=== PATIENT | female | born 1995 | race Caucasian/White ===

== ENCOUNTER 2017-05-06 15:34 | Outpatient (CLI) | payer BC ==
[~2017-05-06] VITALS: Ht 167.6 cm; Wt 87.0 kg
[~2017-05-06 15:34] MED LIST: MTR600X PO; PRENTAB26 PO
[2017-05-06] MEDS ORDERED: LACTATED RINGER'S 1000ML 500 ML IV ONE (16:05)
[2017-05-06] MEDS ORDERED: LACTATED RINGER'S 1000ML 1,000 ML IV SCH (16:05)
[2017-05-06] MEDS ORDERED: ACETAMINOPHEN 325 MG TAB PO PRN (16:15)
[2017-05-06 16:33] VITALS: Ht 167.6 cm; Wt 87.0 kg
[2017-05-06 17:38] LABS: URINE APPEARANCE CLEAR (CLEAR); URINE BILIRUBIN NEG (NEG); URINE COLOR YELLOW; URINE NITRITE NEG (NEG); URINE PH 7.5 (4.5-7.5); URINE SPECIFIC GRAVITY 1.004 (1.000-1.030); UROBILINOGEN NEG (NEG)
[2017-05-06 17:40] LABS: MANUAL MICROSCOPIC REQUIRED? NO; REVIEW REQ? YES
[2017-05-06 18:02] LABS: URINE EPITHELIAL CELL AUTO 0-5 /lpf (0-5)
[2017-05-06 18:04] LABS: ZZUR CULT IF INDIC CLEAN CATCH YES
[2017-05-06] MEDS ORDERED: TERBUTALINE SULFATE 1 MG/ML VIAL SQ ONE (19:15)
== END 2017-05-06 20:35 | disposition home or self-care (01) ==
LOC: C.OPB 15:34 → C.LD 15:34 → C.OPB 20:35
PROVIDERS: ATTEND Obstetrics & Gynecology
DX: O62.9 Abnormality of forces of labor, unspecified (principal); Z3A.35 35 weeks gestation of pregnancy

== ENCOUNTER 2017-05-30 17:53 | Outpatient (CLI) | payer BC, OTHER ==
[~2017-05-30] VITALS: Ht 165.1 cm; Wt 87.5 kg
[2017-05-30] MEDS ORDERED: LACTATED RINGER'S 1000ML 500 ML IV ONE (18:17)
[2017-05-30] MEDS ORDERED: LACTATED RINGER'S 1000ML 1,000 ML IV SCH ×2 (18:17→19:45)
[2017-05-30] MEDS ORDERED: TERBUTALINE SULFATE 1 MG/ML VIAL SQ ONE (19:45)
== END 2017-05-30 21:26 | disposition home or self-care (01) ==
LOC: C.OPB 17:53 → C.LD 17:53 → C.OPB 21:26
PROVIDERS: ATTEND Obstetrics & Gynecology
DX: O62.9 Abnormality of forces of labor, unspecified (principal); Z3A.38 38 weeks gestation of pregnancy

== ENCOUNTER 2017-06-02 05:32 | Inpatient (IN) | payer OTHER, BC ==
--- NOTE | 2017-05-26 13:30 | PAT Medication Instructions ---
Service Date May 26, 2017. Current Home Medication List No Active Prescriptions or Reported Meds Medication Instructions For Your Scheduled Surgery No Active Prescriptions or Reported Meds - Please contact PAT department if starting any medications prior to procedure. If you have any questions please call us at [phone] or [phone] or [phone]
[2017-05-26 13:59] LABS: BASO % 0.2 %; BASO ABS # 0.02 K/uL (0-0.2); EOS % 0.3 %; EOS ABS # 0.04 K/uL (0-0.5); HEMATOCRIT 34.2 % (37-47); HEMOGLOBIN 11.3 g/dL (12.0-16.0); LYMPH % 19.5 %; LYMPH ABS # 2.52 K/uL (1.2-3.4); MEAN CELL VOLUME 81.8 fL (80-100); MONO % 10.6 %; MONO ABS # 1.37 K/uL (0.11-0.59); NEUT % 68.6 %; NEUT ABS # 8.86 K/uL (1.4-6.5); PLATELET COUNT 162 K/uL (130-400); RED CELL DISTRIBUTION WIDTH CV 13.3 % (11.5-14.5); RED CELL DISTRIBUTION WIDTH SD 39.6 fL (36.4-46.3); WHITE BLOOD COUNT 12.91 K/uL (4.8-10.8)
[2017-05-26 15:42] LABS: BLOOD UREA NITROGEN 5 mg/dl (7-18); CALCIUM 9.3 mg/dl (8.5-10.1); CARBON DIOXIDE 25 mmol/L (21-32); CREATININE 0.69 mg/dl (0.60-1.20); GLUCOSE 94 mg/dl (70-99); POTASSIUM 3.7 mmol/L (3.5-5.1); SODIUM 136 mmol/L (136-145)
[~2017-06-02] VITALS: Ht 162.6 cm; Wt 88.0 kg
[2017-06-02] VITALS (16 sets, daily range): BP systolic 103–124; BP diastolic 65–72; PULSE 64–82; TEMP 35.2–37.6; O2SAT 98–100; Ht 162.6 cm; Wt 88.0 kg
[~2017-06-02 05:32] MED LIST changes: +LACTATED RINGER'S 1000ML 1,000 ML IV SCH; -MTR600X PO; -PRENTAB26 PO
[2017-06-02 06:00] LABS: BASO % 0.2 %; BASO ABS # 0.03 K/uL (0-0.2); EOS % 0.7 %; EOS ABS # 0.09 K/uL (0-0.5); HEMATOCRIT 36.3 % (37-47); HEMOGLOBIN 11.6 g/dL (12.0-16.0); IG# 0.09 K/uL (0.00-0.02); LYMPH ABS # 3.93 K/uL (1.2-3.4); MEAN CELL VOLUME 80.5 fL (80-100); MEAN CORPUSCULAR HEMOGLOBIN 25.7 pg (25-34); MONO % 7.3 %; MONO ABS # 0.93 K/uL (0.11-0.59); NEUT % 60.1 %; NEUT ABS # 7.61 K/uL (1.4-6.5); PLATELET COUNT 173 K/uL (130-400); RED CELL DISTRIBUTION WIDTH CV 13.3 % (11.5-14.5); RED CELL DISTRIBUTION WIDTH SD 38.4 fL (36.4-46.3); WHITE BLOOD COUNT 12.68 K/uL (4.8-10.8)
[2017-06-02] MEDS ORDERED: CITRIC ACID/SODIUM CITRATE 15 ML UDC PO SCH (06:00)
[2017-06-02] MEDS ORDERED: CEFAZOLIN IV 2,000 MG in SYRINGE 0 ML IV SCH (06:00)
[2017-06-02] MEDS ORDERED: LACTATED RINGER'S 1000ML 1,000 ML IV SCH ×2 (06:00→08:41)
[2017-06-02] MEDS ORDERED: PRENCAP38 PO (06:14)
--- NOTE | 2017-06-02 07:03 | History & Physical Bridge Note ---
H&P Re-Evaluation Bridge Note: I have examined the patient, reviewed the History & Physical and in the interval since the performance of the History & Physical I have noted the following changes of clinical significance: No changes noted
[2017-06-02] MEDS ORDERED: HYDROmorphone INJ 1 MG/ML SYR IV PRN (07:30)
[2017-06-02] MEDS ORDERED: FENTANYL CITRATE INJ 50 MCG/1 ML 2 ML VIAL IV PRN (07:30)
[2017-06-02] MEDS ORDERED: ONDANSETRON INJ 2 MG/ML 2 ML VIAL IV PRN ×2 (07:30→08:15)
[2017-06-02] MEDS ORDERED: ATROPINE SULFATE 0.1 MG/ML 5ML SYR IV PRN (07:30)
[2017-06-02] MEDS ORDERED: MEPERIDINE HCL 25 MG/ML CARP IV PRN ×2 (07:30→08:15)
[2017-06-02] MEDS ORDERED: EpHEDrine SULFATE INJ 50 MG/ML AMP IV PRN ×2 (07:30→08:15)
[2017-06-02] MEDS ORDERED: LABETALOL HCL IV 5 MG/ML 20ML IV PRN (07:30)
[2017-06-02] MEDS ORDERED: MoRPHine SULFATE PF 1 MG/ML 10 ML AMP/VIAL ONE (07:34)
[2017-06-02] MEDS ORDERED: NALOXONE HCL INJ 1 MG in SODIUM CHLORIDE 0.9% 1000ML 1,000 ML IV PRN (08:13)
[2017-06-02] MEDS ORDERED: NALOXONE HCL INJ 0.08 MG in SYRINGE 1.8 ML IV PRN (08:13)
[2017-06-02] MEDS ORDERED: LACTATED RINGER'S 1000ML 500 ML IV PRN (08:13)
[2017-06-02] MEDS ORDERED: SODIUM CHLORIDE 0.9% 1000ML 1,000 ML IV PRN (08:13)
[2017-06-02] MEDS ORDERED: KETOROLAC TROMETHAMINE 30 MG/ML VIAL IV. PRN (08:15)
[2017-06-02] MEDS ORDERED: MoRPHine SULFATE 2 MG/ML CARP IV PRN (08:15)
[2017-06-02] MEDS ORDERED: NALOXONE HCL 0.4 MG/1 ML VIAL/CARP IV PRN (08:15)
[2017-06-02] MEDS ORDERED: NALBUPHINE HCL INJ 10 MG/ML AMP IV PRN (08:15)
[2017-06-02] MEDS ORDERED: MoRPHine SULFATE PF 1 MG/ML 10 ML AMP/VIAL EPI PRN (08:15)
[2017-06-02] MEDS ORDERED: METOCLOPRAMIDE HCL INJ 20 MG in SODIUM CHLORIDE 0.9% 50ML 50 ML IV PRN (08:15)
[2017-06-02] MEDS ORDERED: NO NARCOTICS OR SEDATIVES SCH (08:15)
[2017-06-02] MEDS ORDERED: DiphenhydrAMINE HCL 50 MG/ML VIAL IV PRN ×2 (08:15)
[2017-06-02] MEDS ORDERED: OXYTOCIN INJ 10 UNITS/ML VIAL ONE (08:19)
[2017-06-02] MEDS ORDERED: EpHEDrine SULFATE 50MG/5ML SYR ONE (08:20)
[2017-06-02] MEDS ORDERED: BENZOCAINE 20% AER SPR 82.5 GM CAN EXT PRN (08:45)
[2017-06-02] MEDS ORDERED: SUPERCREAM 0.870 % 15GM JAR EXT PRN (08:45)
[2017-06-02] MEDS ORDERED: LANOLIN OINT EXT PRN (08:45)
[2017-06-02] MEDS ORDERED: MAGNESIUM HYDROXIDE SUSP 30 ML UDC PO PRN (08:45)
[2017-06-02] MEDS ORDERED: HYDROCORTISONE ACETATE 25 MG SUPP PR PRN (08:45)
[2017-06-02] MEDS ORDERED: DIPHTHERIA/TETANUS/PERTUSSIS 0.5 ML SYR/VIAL IM. ONE (08:45)
[2017-06-02] MEDS ORDERED: SENNA 8.6 MG TAB PO PRN (08:45)
--- NOTE | 2017-06-02 08:49 | [facility] Post Operative Brief Note ---
Immediate Operative Summary Operative Date Jun 02, 2017. Pre-Operative Diagnosis Term at 39.1 weeks, Hx prior C/S requesting repeat section Post-Operative Diagnosis Same Procedure(s) Performed Repeat Low Transverse Section Surgeon Dr. Emerson Workforce Consultant Surgeon(s) Dr. Waters Estimated Blood Loss 600 Findings Patient Delivered a viable male infant in the vertex position via repeat C/S on the morning of 06/02/2017. APGARs and weight pending. Cord blood was obtained. An intact placenta with a 3 VC was delivered manually and sent to pathology. Grossly normal uterus and bilateral tubes and ovaries noted. Both patient and baby tolerated the surgery well and was sent to recovery with stable vital signs. Fluids (cc crystalloids) 2100 Specimens Placenta Cord Blood Drains Lacy to [place] Anesthesia Spinal Complication(s) None Disposition L&D
--- NOTE | 2017-06-02 09:41 | OPERATIVE REPORT ---
DATE OF OPERATION: 06/02/2017 PREOPERATIVE DIAGNOSES: 1. Term at 39 weeks and 1 day gestation. 2. History of prior section, requesting repeat section. POSTOPERATIVE DIAGNOSES: Same. OPERATIVE PROCEDURE: Repeat low transverse section. SURGEON: Dr. Uriah Emerson. INFORMATION AND DATA ARCHITECT ANALYST: Dr. Waters. ANESTHESIA: Spinal. ESTIMATED BLOOD LOSS: 600 mL. IV FLUIDS: 2100 mL crystalloids. URINE OUTPUT: 200 mL clear yellow urine. SPECIMENS: Placenta and cord blood. DRAINS: Lacy to gravity. COMPLICATIONS: None. DISPOSITION: Labor and delivery. OPERATIVE FINDINGS: The patient delivered a viable male in the vertex position via repeat section on the morning of 06/02/2017. Apgars and weight pending. Cord blood was obtained and intact placenta with 3-vessel cord was delivered manually and sent to pathology. Grossly normal uterus and bilateral tubes and ovaries noted. Both the patient and baby tolerated the surgery well and were sent to recovery with stable vital signs. OPERATIVE PROCEDURE IN DETAIL: The patient was taken to the operating room, where spinal anesthesia was administered. She was immediately placed in dorsal supine position with a left lateral tilt and was prepped and draped in a manner appropriate for the procedure. Once anesthesia was found to be adequate, a Pfannenstiel skin incision was made over the previous surgical scar and it was carried down through to a layer of the rectus fascia. Fascia was nicked in the midline and extended bilaterally with curved Blankenship scissors. The superior aspect of the fascial incision was grasped with Ellis clamps, elevated, and the rectus muscles were dissected off with the use of the curved Blankenship scissors and electrocautery. Likewise, the inferior aspect of the fascial incision was grasped with Ellis clamps, elevated, and the rectus muscles were dissected off with the use of the curved Blankenship scissors. Rectus muscles were in midline. The peritoneum was then entered bluntly and was extended cephalocaudally with gentle traction. An Gonzalo retractor was then placed within the abdomen. The vesicouterine peritoneum was then identified and a bladder flap was created with Metzenbaum scissors and digital traction. The bladder flap was then reincorporated beneath the [place] blade. A transverse incision was then made on the uterus and extended bilaterally with digital traction. Clear amniotic fluid was noted. The baby's head was identified and delivered through the incision along with the rest of the baby. Baby was bulb suctioned at delivery. Cord was clamped x2 and cut. The baby was immediately handed to an awaiting spray machine loader for further evaluation and management. Please see their notes for further baby assessment. Cord blood was then obtained and an intact placenta with 3-vessel cord was delivered manually and sent to pathology. The uterus was then exteriorized and wrapped in a moist laparotomy sponge. The uterus was then cleared of any trailing membranes and debris with the laparotomy sponge. The uterine incision was then grasped with ring forceps at 4 quadrants. They were then closed with 0 Vicryl suture in continuous locking fashion. A second layer of 0 Vicryl suture was used in an imbricating fashion to ensure hemostasis. Any residual bleeding was suture ligated with 0 Vicryl suture in a [id number] interrupted fashion. Excellent hemostasis was noted. The bladder flap was reapproximated to the lower uterus with a 3-0 Vicryl suture in a continuous running fashion. Excellent hemostasis was again noted. The posterior cul-de-sac was then irrigated with warm saline solution. The uterus was then placed back within its normal anatomic position within the abdomen. The anterior cul-de-sac was then irrigated with warm saline solution. Hemostasis was again noted. Seprafilm was placed over the incision and along the fundus of the uterus. All instruments were then removed from the abdomen along with the Gonzalo retractor. The peritoneum was then grasped with Angelica clamps at 4 quadrants and they were then closed with 2-0 Vicryl suture in a continuous running fashion. Rectus muscle was reapproximated with 0 Vicryl suture in a [id number] interrupted fashion. The rectus fascia was then closed with 0 Vicryl suture in continuous running fashion. Subcutaneous tissue was reapproximated with 2-0 Vicryl suture in continuous running fashion. Skin was then closed with susy. Excellent hemostasis was noted through all tissue layers. All sponge, instrument and needle counts were found to be correct x2. Both the patient and baby tolerated the surgery well and were sent to recovery with stable vital signs. I attest to the content of the Intraoperative Record and any orders documented therein. Any exception s are noted below.
[2017-06-02] MEDS: OXYTOCIN INJ 30 UNITS in LACTATED RINGER'S 1000ML 1,000 ML IV SCH ×2 (09:46→17:38)
[2017-06-02] MEDS: SIMETHICONE 80 MG CHEW PO SCH ×3 (12:10→19:35)
[2017-06-02] MEDS: DOCUSATE SODIUM 100 MG CAP PO SCH (19:35)
[2017-06-03 01:00] VITALS: O2SAT 99
[2017-06-03] MEDS ORDERED: ONDANSETRON INJ 2 MG/ML 2 ML VIAL IV PRN (01:45)
[2017-06-03] MEDS ORDERED: KETOROLAC TROMETHAMINE 30 MG/ML VIAL IV. PRN (01:45)
[2017-06-03] MEDS ORDERED: OXYCODONE/ACETAMINOPHEN 5-325 TAB PO PRN (01:45)
[2017-06-03] MEDS ORDERED: DC INTRASPINAL MORPHINE ONE (01:45)
[2017-06-03 02:00] VITALS: O2SAT 99
[2017-06-03 02:30] VITALS: BP 116/69; PULSE 81; TEMP 37.2
[2017-06-03] MEDS: IBUPROFEN 600 MG TAB PO PRN ×4 (05:30→23:45)
[2017-06-03] MEDS: OXYCODONE/ACETAMINOPHEN 5-325 TAB PO PRN ×4 (05:58→23:45)
[2017-06-03 06:52] LABS: HEMATOCRIT 32.7 % (37-47); HEMOGLOBIN 10.7 g/dL (12.0-16.0); MEAN CELL VOLUME 80.3 fL (80-100); MEAN CORPUSCULAR HEMOGLOBIN 26.3 pg (25-34); MEAN CORPUSCULAR HGB CONC 32.7 g/dl (32-36); MEAN PLATELET VOLUME 13.3 fL (7.4-10.4); PLATELET COUNT 179 K/uL (130-400); RED CELL DISTRIBUTION WIDTH CV 13.4 % (11.5-14.5); RED CELL DISTRIBUTION WIDTH SD 38.8 fL (36.4-46.3); WHITE BLOOD COUNT 18.43 K/uL (4.8-10.8)
[2017-06-03 07:33] LABS: BASO % 0.2 %; BASO ABS # 0.03 K/uL (0-0.2); EOS % 0.2 %; EOS ABS # 0.03 K/uL (0-0.5); LYMPH % 13.2 %; LYMPH ABS # 2.44 K/uL (1.2-3.4); MONO % 9.3 %; MONO ABS # 1.71 K/uL (0.11-0.59); NEUT % 76.6 %; NEUT ABS # 14.12 K/uL (1.4-6.5)
[2017-06-03 08:00] VITALS: BP 114/71; PULSE 72; TEMP 37
[2017-06-03] MEDS: SIMETHICONE 80 MG CHEW PO SCH ×4 (08:04→20:00)
[2017-06-03] MEDS: DOCUSATE SODIUM 100 MG CAP PO SCH ×2 (08:36→20:00)
[2017-06-03] MEDS: PRENATAL VITAMIN TAB PO SCH (08:36)
[2017-06-03] MEDS: FERROUS SULFATE 325 MG TAB PO SCH (08:36)
--- NOTE | 2017-06-03 08:41 | OB/GYN Progress Note ---
DAY CAMP COUNSELOR Progress Note Date of Service: Jun 03, 2017. Patient is seen and examined. She feels well, no complaints. Pain is under control with oral meds. Ambulating without dizziness Voiding without difficulty Tolerating regular diet with out N&V Flatus + BM NEG Bleeding is minimal No fever/ chills/ CP/ SOB/ N&V/ Leg pain Bottle feeding without problems Date Time Temp Pulse Resp B/P (MAP) Pulse Ox O2 Delivery O2 Flow Rate FiO2 06/03/17 02:30 37.2 81 20 116/69 (85) Room Air 06/03/17 02:00 18 99 06/03/17 01:00 20 99 06/02/17 23:30 99 Room Air 06/02/17 23:30 37.6 73 20 103/66 (78) Room Air 06/02/17 23:30 20 99 06/02/17 23:00 20 99 06/02/17 22:00 18 99 06/02/17 21:00 18 99 06/02/17 20:00 18 98 06/02/17 19:30 36.9 82 18 124/72 (89) Room Air 06/02/17 19:00 16 98 06/02/17 18:00 18 99 06/02/17 17:00 18 99 06/02/17 16:00 16 98 06/02/17 15:00 36.5 68 18 117/70 (86) 98 Room Air 06/02/17 15:00 18 98 06/02/17 15:00 98 Room Air 06/02/17 14:10 18 100 06/02/17 14:10 64 18 115/65 (82) 100 Room Air 06/02/17 14:00 36.5 06/02/17 13:10 16 100 06/02/17 13:10 35.4 66 16 123/70 (87) 100 Room Air 06/02/17 13:10 35.2 06/02/17 12:10 100 Room Air 06/02/17 12:10 100 Room Air 06/02/17 12:10 16 100 06/02/17 12:10 35.5 66 16 112/67 (82) 100 Room Air PE: General: Alert, orientedx3, NAD CVS: S1S2 RRR Lungs; CTAB Abd: soft, NT, ND, BS+, fundus firm, below Umbilicus Incision: Clean, dry, intact Perineum intact, Lochia rubra minimal Ext; NT, no edema AP: 21 yo s/p RC Section, pod# 1 VSS Afebrile doing well Continue routine postop care Encourage ambulation, PO intake All questions were answered
[2017-06-03 15:25] VITALS: BP 115/74; PULSE 72; TEMP 36.8; O2SAT 98
[2017-06-03] MEDS ORDERED: BISACODYL 5 MG TABEC PO ONE (22:00)
[2017-06-03 23:15] VITALS: BP 114/72; PULSE 70; TEMP 36.6
[2017-06-04 07:09] LABS: HEMOGLOBIN 9.7 g/dL (12.0-16.0)
--- NOTE | 2017-06-04 07:15 | OB/GYN Progress Note ---
ELEVATOR OPERATOR FREIGHT Progress Note Date of Service Jun 04, 2017. Subjective conversation w/ patient, physical exam Ambulation: ambulating normally Voiding: no voiding problems Passing Gas: Yes Diet Tolerance: Regular Diet Lochia: Small Feeding Type: Bottle Feeding Pain: 3/10 Notes: Doing well, no concerns. Pain well controlled. Lochia minimal. Ambulating without difficulty. Tolerating regular diet, +flatus, -BM. Objective Vital Signs Date Time Temp Pulse Resp B/P (MAP) Pulse Ox O2 Delivery O2 Flow Rate FiO2 06/03/17 23:15 36.6 70 18 114/72 (86) Room Air 06/03/17 15:25 36.8 72 18 115/74 (88) 98 Room Air 06/03/17 15:25 98 Room Air 06/03/17 08:00 37.0 72 20 114/71 (85) Physical Exam General Appearance: WELL-APPEARING Respiratory/Chest: chest non-tender, lungs clear Cardiovascular: regular rate, rhythm Abdomen: normal bowel sounds, soft Fundus: Firm Incision Description: Clean, Dry & Intact Extremities: normal range of motion, non-tender, no calf tenderness Laboratory Results Last 24 Hours Test 06/04/17 06:43 Hemoglobin 9.7 g/dL Hematocrit 30.0 % Assessment and Plan Post-Op Day Number: 2 Continue Routine Care: -Continue routine postop care -Anticipate D/C home tomorrow AM.
[2017-06-04 07:35] VITALS: BP 113/72; PULSE 73; TEMP 36.8; O2SAT 98
[2017-06-04] MEDS: OXYCODONE/ACETAMINOPHEN 5-325 TAB PO PRN ×5 (08:08→22:01)
[2017-06-04] MEDS: IBUPROFEN 600 MG TAB PO PRN ×5 (08:09→22:00)
[2017-06-04] MEDS: DOCUSATE SODIUM 100 MG CAP PO SCH ×2 (08:23→19:56)
[2017-06-04] MEDS: SIMETHICONE 80 MG CHEW PO SCH ×4 (08:23→19:56)
[2017-06-04] MEDS: FERROUS SULFATE 325 MG TAB PO SCH (08:23)
[2017-06-04] MEDS: PRENATAL VITAMIN TAB PO SCH (08:23)
[2017-06-04] MEDS ORDERED: BISACODYL 10 MG SUPP PR PRN (08:45)
[2017-06-04 15:20] VITALS: BP 102/72; PULSE 68; TEMP 36.7; O2SAT 97
[2017-06-04 23:30] VITALS: BP 115/76; PULSE 61; TEMP 36.9
[2017-06-05] MEDS: IBUPROFEN 600 MG TAB PO PRN ×2 (04:47→10:44)
[2017-06-05] MEDS: OXYCODONE/ACETAMINOPHEN 5-325 TAB PO PRN ×2 (04:48→10:44)
[2017-06-05 07:30] VITALS: BP 136/83; PULSE 80; TEMP 37
[2017-06-05] MEDS: DOCUSATE SODIUM 100 MG CAP PO SCH (08:25)
[2017-06-05] MEDS: PRENATAL VITAMIN TAB PO SCH (08:25)
[2017-06-05] MEDS: SIMETHICONE 80 MG CHEW PO SCH (08:25)
[2017-06-05] MEDS: FERROUS SULFATE 325 MG TAB PO SCH (08:25)
[2017-06-05] MEDS ORDERED: OXYC-57 PO (08:31)
[2017-06-05] MEDS ORDERED: MTR600X PO (08:31)
--- NOTE | 2017-06-05 08:33 | Discharge Instructions ---
Discharge Instructions Date of Service Jun 05, 2017. Admission Reason for Admission: Section Discharge Discharge Diagnosis / Problem: term delivered by Discharge Goals Goal(s): Routine recovery after Activity Recommendations Activity Limitations: as noted below Lifting Limitations: no more than 10 pounds Exercise/Sports Limitations: gradually increase as tolerated, until after follow-up appointment May Resume Sexual Activity: after follow-up appointment Shower/Bathe: no limitations Driving or Machine Use: resume 3 days after discharge . Current Hospital Diet ACTIVITY RECOMMENDATIONS: * Gradual return to full activity over the next 2-3 weeks. * No lifting - nothing heavier than baby over the next 2-3 weeks. * Do not engage in vigorous exercise, sexual activity or sports until cleared by your physician. * Do not drive or operate any motorized equipment until cleared by your physician. * You may shower/bathe daily. BREAST CARE: If you are not breast feeding: * Wear a supportive bra 24 hours a day for one to two weeks. * Avoid stimulating your breasts and nipples as much as possible during the first few weeks after delivery. * When taking a shower, have the warm water hit your back, not breasts. * When your breasts feel full, apply ice packs. Usually three to four times a day helps ease the discomfort. * Take a mild pain medication (Tylenol/Motrin) when you are uncomfortable. If breast feeding: * Use breast milk to lubricate nipples. Lansinoh cream may be used for sore nipples. You do not need to remove cream prior to breast feeding. If using a different brand of cream, check the label for directions regarding removal of cream prior to nursing. * Wear a supportive bra. * If having problems with breasts or breast feeding, call a reporting process consultant or your health care provider. OVER THE COUNTER MEDICATION: * For discomfort or pain, you may use Acetaminophen (Tylenol), Ibuprofen (Advil ), or Naproxen (Aleve) following the package directions. * For constipation you may use Colace following the package directions. SPECIAL CARE INSTRUCTIONS: When you are discharged from the hospital, it is important for you to follow the instructions listed below: * During the first week at home, you should be able to care for yourself and your baby. In addition, the usual light household activities are encouraged. * Limit your activities to the way you feel. Do not try to clean the house or move furniture. Be sensible. * If you actively engage in sports and have done so up until the time of your delivery, you may resume these activities as soon as you feel able. This may take up to one month or even longer. Use good judgment. * Continue to take your vitamins for at least six weeks after the of your baby. * Your diet need not be limited unless you were on a special diet before your delivery. Breast-feeding mothers need around 2500 calories per day and at least 64-80 ounces of fluid per day (8 to 10 glasses). * You should eat foods from the four major food groups. Crash diets or fad diets are to be avoided. Eating lean meats, fresh fruits and vegetables, low-fat dairy products, high fiber foods and a regular exercise program, will help you get back to your pre- weight without putting your health at risk. * Constipation is sometimes a problem after delivery. Take a mild laxative as needed. If breast feeding, Milk of Magnesia is acceptable to use. You may use a suppository or Fleets enema if no episiotomy. * A daily shower or tub bath is suggested. Be sure to thoroughly and gently dry the perineum. * A bloody vaginal discharge will usually continue until around four weeks post . A small amount of bleeding may continue for as long as six weeks. Vaginal discharge changes from the bright red bleeding after delivery to pink then brownish and finally yellowish-pink before becoming white and disappearing. * Bleeding may increase with activity. Your first period may come in 4-8 weeks. If you are breast feeding, your period may be delayed even longer. * [place] (sex) can begin whenever both you and your partner feel comfortable and do not have any form of genital infection. It is recommended that you wait at least six weeks for internal and external healing to occur. If you have questions, please talk to your health care practitioner. A condom should be used to prevent infection and . * Foreplay, gentle intercourse and lubrication is very important the first several times to prevent pain. A water-based lubricant such as K-Y jelly or Astroglide may be used. * Tampons and/or Douching should be avoided until after six weeks check-up. * If you have RH negative blood and your baby is RH positive, you will receive RHOGAM by injection prior to discharge. The nurse will give you a card to keep with you that has the date and place that you received RHOGAM after delivery. * During your care, you had a Rubella screen done to check for the presence of rubella antibodies in your blood. If your test was negative, you will receive a Rubella vaccine prior to discharge. This vaccine may cause a fever, soreness at the injection site and flu-like symptoms. If these symptoms persist, notify your health care practitioner. is not advised for three months after a Rubella vaccine. * Verbalizes understanding of car seat law as reviewed with patient nursing. * Car Seat hand-out given and reviewed with patient by nursing. * Shaken baby information reviewed with patient by nursing. Call you doctor if: * Heavy bleeding (saturating several pads an hour) or passing clots the size of your fist. * A fever >101 degrees F (38.3 degrees C) on two occasions four hours apart and /or chills. * Unusual pain in the pelvic or vaginal areas. Pain should improve each day . * Call the doctor for any increased redness, drainage or swelling around the incision and any pain unrelieved by prescribed pain medication. * Any signs or symptoms of phlebitis (possible blood clots forming in the veins ): leg pain, warm, red or swollen area on leg. * "Baby Blues" lasting longer than two weeks. If you have any questions or concerns, call your health care practitioner at . FOLLOW-UP VISIT: * Incision check (staple removal) in 1 week. Please call doctor's office at to set up appointment. * Please call the office at to schedule a 6 week examination. It is important you keep this appointment. * It is important for you to make arrangements for either yearly or twice yearly check-ups thereafter. Patient's current hospital diet: Regular OB Diet Discharge Diet Recommended Diet: Regular OB Diet Fluid Restriction: None Procedures Procedures Performed: section Pending Studies Studies pending at discharge: no Medical Emergencies . Who to Call and When: Medical Emergencies: If at any time you feel your situation is an emergency, please call 911 immediately. . Non-Emergent Contact Non-Emergency issues call your: Primary Care Provider . . "Provider Documentation" section prepared by Boubacar Enriquez. . VTE Core Measure Inpt VTE Proph given/why not?: Treatment not indicated
--- NOTE | 2017-06-05 09:19 | Surgery Progress Note ---
Surgery Progress Note Date of Service Jun 05, 2017. Subjective Post OP Day: 3 + feeling well, + ambulating, + flatus, + pain controlled, + diet Objective Vital Signs: Date Time Temp Pulse Resp B/P (MAP) Pulse Ox O2 Delivery O2 Flow Rate FiO2 06/05/17 07:30 Room Air 06/05/17 07:30 37.0 80 20 136/83 (100) Room Air 06/04/17 23:30 36.9 61 18 115/76 (89) Room Air 06/04/17 23:30 Room Air 06/04/17 15:20 36.7 68 20 102/72 (82) 97 Room Air 06/04/17 15:20 Room Air Abdomen: non tender, non distended, soft Incision(s): clean, dry, intact Assessment & Plan regular diet POD#3 discharged
[2017-06-05 13:37] VITALS: BP_DIAS 83; PULSE 80; TEMP 37
== END 2017-06-05 14:00 | disposition home or self-care (01) | DRG 766 ==
LOC: C.LD 05:32 → C.OBG 12:00 → EDSTATUS 12:04
PROVIDERS: ADMIT Obstetrics & Gynecology; ATTEND Obstetrics & Gynecology
PROC: 10D00Z1 Extraction of Products of Conception, Low, Open Approach (ICD-10-PCS; principal; 2017-06-02 07:30)
DX: O34.219 Maternal care for unspecified type scar from previous cesarean delivery (principal); O69.81X1 Labor and delivery complicated by cord around neck, without compression, fetus 1; Z37.0 Single live birth; Z3A.39 39 weeks gestation of pregnancy

== ENCOUNTER 2020-07-10 07:25 | Inpatient (IN) ==
--- NOTE | 2020-06-28 09:20 | Anesthesiology Consultation ---
Date of Service June 28, 2020 Assessment & Plan (1) Encounter for pre-operative examination: Chart Review Chart Review: Patient NOT seen in Pre Admission Testing and entry level mechanical engineer initiated Per nursing assessment 06/20/2020, patient denies any recent travel. Patient denies any known Covid infection in the past 90 days. No known Covid positive contacts or Covid related symptoms. Patient will be following up with OB regarding preop Covid testing = will await results. 06/02/2017 = spinal anesthesia block done at L3-4 with 1 attempt. Patient tolerated well. No anesthesia issues noted per anesthesia record. History Surgery Operation Date: 07/11/20 07:30 Proposed Procedures p Section in LD - Mily Conte MD Height/Weight Height: 5 ft 7 in Weight: 87.09 kg Allergies Allergy/AdvReac Type Severity Reaction Status Date / Time No Known Allergies Allergy Unverified 06/20/20 12:54 Medications Home Medications Medication Instructions Recorded Confirmed Last Taken WITHOUT A W/ FE FUMAR 1 cap PO QAM 90 Days #90 cap 06/02/17 06/20/20 04/28/20 (PNV-DHA) Past Medical History Medical History Asthma "sports induced" - no inh History of anxiety History of gestational diabetes History of pre-eclampsia Past Family History Family History Grandmother (Maternal) Hypertension Stroke Grandfather (Paternal) Heart disease Hypertension Stroke Grandmother (Paternal) Diabetes Heart disease Hypertension Stroke Grandfather (Maternal) Heart disease Other No family history of adverse response to anesthesia Past Surgical History Surgical History History of x2 Social History Smoking Status: Former smoker Do You Dip or Chew Tobacco: No Smoking End Date: 05/2019 Hx Alcohol Use: No Hx Substance Use: No substance use type: does not use
[~2020-07-10 07:25] MED LIST changes: +CITRIC ACID/SODIUM CITRATE 15 ML UDC PO SCH; +LACTATED RINGER'S 1,000 ML IV SCH; -LACTATED RINGER'S 1000ML 1,000 ML IV SCH; +ceFAZolin 2,000 MG in SYRINGE 0 ML IV SCH
[2020-07-10] MEDS ORDERED: LACTATED RINGER'S 1,000 ML IV SCH ×2 (07:45→13:00)
[2020-07-10 07:47] LABS: Basophils # (auto) 0.02 K/uL (0-0.2); Basophils % (auto) 0.2 %; Eosinophils # (auto) 0.07 K/uL (0-0.5); Eosinophils % (auto) 0.6 %; Hemoglobin 11.7 g/dL (12.0-16.0); Immature Granulocytes # (auto) 0.09 K/uL (0.00-0.02); Immature Granulocytes % (auto) 0.8 %; Lymphocytes # (auto) 2.39 K/uL (1.2-3.4); Lymphocytes % (auto) 21.8 %; Mean Corpuscular Hemoglobin 27.9 pg (25-34); Mean Corpuscular Hgb Conc 33.4 g/dL (32-36); Mean Corpuscular Volume 83.5 fL (80-100); Mean Platelet Volume 12.9 fL (7.4-10.4); Monocytes # (auto) 0.96 K/uL (0.11-0.59); Monocytes % (auto) 8.7 %; Neutrophils # (auto) 7.45 K/uL (1.4-6.5); Neutrophils % (auto) 67.9 %; Platelet Count 149 K/uL (130-400); RDW Coefficient of Variation 12.7 % (11.5-14.5); RDW Standard Deviation 38.5 fL (36.4-46.3); Red Blood Count 4.19 M/uL (4.2-5.4); White Blood Count 10.98 K/uL (4.8-10.8)
--- NOTE | 2020-07-10 09:48 | History & Physical Report ---
Date of Service July 10, 2020 Assessment & Plan (1) History of delivery: (2) Request for sterilization: Admission and Anticipated Discharge Date Admission Date: July 10, 2020 History of Present Illness 24 F [id number] admitted for elective repeat and bilateral tubal ligation Primary Care Provider: NO PCP Allergies Allergy/AdvReac Type Severity Reaction Status Date / Time No Known Allergies Allergy Unverified 06/20/20 12:54 Home Medications Medication Instructions Recorded Confirmed Type WITHOUT A W/ FE FUMAR 1 cap PO QAM 90 Days #90 cap 06/02/17 06/20/20 History (PNV-DHA) prenat.vits,clau,nne-qxre-uargz 1 tab PO DAILY 07/10/20 07/10/20 History [ Vitamin] Past Med/Surg History Medical History Asthma "sports induced" - no inh History of anxiety History of gestational diabetes History of pre-eclampsia Surgical History History of x2 Family History Grandmother (Maternal) Hypertension Stroke Grandfather (Paternal) Heart disease Hypertension Stroke Grandmother (Paternal) Diabetes Heart disease Hypertension Stroke Grandfather (Maternal) Heart disease Other No family history of adverse response to anesthesia Social History (Updated 07/10/20 @ 09:37 by Naomie Ríos RN) Smoking Status: Former smoker Smoking End Date: 05/2019; Second Hand Exposure: No; Do You Dip or Chew Tobacco: No; Tobacco Cessation Education Requested by Patient: No Hx Alcohol Use: No Hx Substance Use: No Preferred Language: [place] Communication Ability: Effective Visual Impairment: No Limitations Hearing Ability: Normal Legal Adviser Required: No Beliefs That Will Affect Care: None marital status: Single Current Living Situation: Significant Other Other Information That Helps Us Care for You: No Feels Safe at Home: Yes Safety Concerns: Feels Safe At This Time Assistive Devices: None Review of Systems Review of Systems: All systems reviewed & are unremarkable except as noted in HPI & below Physical Exam Constitutional: WD/WN, vitals as above well developed and comfortable Eyes: PERRL, conjunctivae normal, anicteric sclerae Respiratory: normal respiratory effort, lungs clear to auscultation normal respiratory effort Cardiovascular: RRR, no murmur, no edema Rate/Rhythm: regular rate Gastrointestinal (Abdomen): Inspection/Auscultation: abdomen normal to inspection Percussion/Palpation: abdomen soft Musculoskeletal: no cyanosis or clubbing, extremities motor strength 5/5 Skin: no rashes, warm and dry Neurologic: patellar DTR's 2+ bilat, sensation intact Psychiatric: A+Ox3, euthymic affect Genitourinary: normal external appearance OB Exam Abdomen: + fundal height (term), + heart tones and + vertex OB Exam Monitor Tracing: + external FHT monitor used, + external uterine monitor used and + category I Results & Data Results & Data ([facility]) Vital Signs (Past 12 Hours) Vital Signs Temp Resp 07/10/20 08:08 37.2 C 20 Laboratory Results Laboratory Results - last 72 hr 07/10/20 07/10/20 07:35 07:35 WBC 10.98 H RBC 4.19 L Hgb 11.7 L Hct 35.0 L MCV 83.5 MCH 27.9 MCHC 33.4 RDW Std Deviation 38.5 RDW Coeff of Theo 12.7 Plt Count 149 MPV 12.9 H Immature Gran % (Auto) 0.8 Neut % (Auto) 67.9 Lymph % (Auto) 21.8 Pine % (Auto) 8.7 Eos % (Auto) 0.6 Baso % (Auto) 0.2 Neut # (Auto) 7.45 H Lymph # (Auto) 2.39 Pine # (Auto) 0.96 H Eos # (Auto) 0.07 Baso # (Auto) 0.02 Immature Gran # (Auto) 0.09 H Blood Type O Positive Antibody Screen NEGATIVE Code Status & VTE Plan VTE Prophylaxis Plan VTE Prophylaxis will be ordered: No
[2020-07-10] MEDS ORDERED: fentaNYL citrate 100 MCG/2 ML VIAL ONE (10:34)
[2020-07-10] MEDS ORDERED: MoRPHine SULFATE PF 1 MG/ML 10 ML AMP/VIAL ONE (10:34)
[2020-07-10] MEDS ORDERED: PHENYLEPHRINE 100MCG/ML 5ML SYR ONE (11:37)
[2020-07-10] MEDS ORDERED: OXYTOCIN 10 UNITS/ML VIAL ONE (11:37)
--- NOTE | 2020-07-10 12:02 | Post Operative Brief Note ---
Immediate Post Op Note v1 Date of Surgery July 10, 2020 Pre & Post Diagnosis Operation Date: 07/10/20 09:00 Pre-Op Diagnosis: 1. Term 2. History of caesarean sections X 2 3. Desires repeat caesarean section and bilateral tubal ligation. Post-Op Diagnosis: same I identified the patient and participated in the time-out.: Yes Procedure Operation Date: 07/10/20 09:00 Actual Procedures p Section with of live male child at 1123 in [facility] OR 3. - Boubacar Enriquez MD s with Bilateral Tubal Ligation - Boubacar Enriquez MD Surgeon Boubacar Enriquez MD Hogshead Press Operator YOSELYN Winston and YOSELYN Kim Estimated Blood Loss 600 Findings Consistent with Post-Op Diagnosis Fluids 2000 ml Specimens Placenta cord blood Drains Malone Catheter (malone cath inserted after spinal placed; clear yellow urine noted upon insertion. ) Anesthesia Type Spinal Complications none Disposition Accompanied Patient To Recovery: Yes Disposition: L&D Overlapping Procedure I was immediately available: during the entire case. Back up surgeon: was not required during procedure.
[2020-07-10] MEDS ORDERED: ONDANSETRON INJ 2 MG/ML 2 ML VIAL IV PRN (12:10)
[2020-07-10] MEDS ORDERED: KETOROLAC 30 MG/ML VIAL IV PRN (12:10)
[2020-07-10] MEDS ORDERED: NALOXONE HCL 0.4 MG/1 ML VIAL/CARP IV PRN (12:10)
[2020-07-10] MEDS ORDERED: PROMETHAZINE HCL 25 MG in SODIUM CHLORIDE 0.9% 50 ML IV PRN (12:10)
[2020-07-10] MEDS ORDERED: MoRPHine SULFATE PF 1 MG/ML 10 ML AMP/VIAL INT SPINAL ONE (12:10)
[2020-07-10] MEDS ORDERED: diphenhydrAMINE 50 MG/ML VIAL IV PRN (12:10)
[2020-07-10] MEDS ORDERED: LACTATED RINGER'S 500 ML IV PRN (12:10)
[2020-07-10] MEDS ORDERED: NALOXONE HCL 1 MG in SODIUM CHLORIDE 0.9% 1000ML 1,000 ML IV PRN (12:10)
[2020-07-10] MEDS ORDERED: ePHEDrine sulfate 50 MG/ML AMP IV PRN (12:10)
[2020-07-10] MEDS ORDERED: NALOXONE HCL 0.08 MG in SYRINGE 1.8 ML IV PRN (12:10)
[2020-07-10] MEDS ORDERED: DC INTRASPINAL MORPHINE SCH (12:15)
[2020-07-10] MEDS ORDERED: NO NARCOTICS OR SEDATIVES SCH (12:15)
[2020-07-10] MEDS ORDERED: SODIUM CHLORIDE 0.9% 1000ML 1,000 ML IV SCH (12:15)
[2020-07-10] MEDS ORDERED: HYDROCORTISONE ACETATE 25 MG SUPP PR PRN (12:49)
[2020-07-10] MEDS ORDERED: SENNA 8.6 MG TAB PO PRN (12:49)
[2020-07-10] MEDS ORDERED: DIPHTHERIA/TETANUS/PERTUSSIS 0.5 ML SYR/VIAL IM ONE (12:49)
[2020-07-10] MEDS ORDERED: BENZOCAINE 20% AER SPR 82.5 GM CAN EXT PRN (12:49)
[2020-07-10] MEDS ORDERED: MAGNESIUM HYDROXIDE SUSP 30 ML UDC PO PRN (12:49)
[2020-07-10] MEDS ORDERED: SUPERCREAM 0.870% 15 GM JAR EXT PRN (12:49)
[2020-07-10] MEDS: OXYTOCIN 20 UNITS in LACTATED RINGER'S 1,000 ML IV SCH ×2 (14:03→21:23)
--- NOTE | 2020-07-10 14:59 | Anesthesiology Progress Note ---
Date of Service July 10, 2020 Anesthesia Post Procedure Vital Signs Vital Signs: Temp Pulse Resp BP Pulse Ox 07/10/20 14:50 51 L 111/63 07/10/20 14:48 52 L 97 07/10/20 14:43 67 97 07/10/20 14:38 52 L 97 07/10/20 14:33 69 97 07/10/20 14:28 67 98 07/10/20 14:23 49 L 97 07/10/20 14:20 56 L 107/64 07/10/20 14:18 60 98 07/10/20 14:15 37.2 C 20 07/10/20 14:13 68 99 07/10/20 14:08 56 L 98 07/10/20 14:03 63 98 07/10/20 13:58 64 100 07/10/20 13:53 60 100 07/10/20 13:50 51 L 124/79 07/10/20 13:48 56 L 100 07/10/20 13:45 20 07/10/20 13:43 58 L 99 07/10/20 13:38 56 L 98 07/10/20 13:33 63 99 07/10/20 13:28 58 L 99 07/10/20 13:23 72 99 07/10/20 13:19 56 L 111/62 07/10/20 13:18 60 99 07/10/20 13:15 20 07/10/20 13:13 58 L 100 07/10/20 13:09 56 L 115/72 07/10/20 13:08 60 100 07/10/20 13:05 20 07/10/20 13:03 65 100 07/10/20 12:59 74 112/65 07/10/20 12:58 90 100 07/10/20 12:55 20 07/10/20 12:53 60 99 07/10/20 12:49 53 L 114/64 07/10/20 12:48 65 100 07/10/20 12:45 20 07/10/20 12:43 60 100 07/10/20 12:39 53 L 107/64 07/10/20 12:38 65 99 07/10/20 12:35 20 07/10/20 12:33 57 L 99 07/10/20 12:29 57 L 104/58 L 07/10/20 12:28 62 99 07/10/20 12:25 20 07/10/20 12:23 60 99 07/10/20 12:19 63 109/56 L 07/10/20 12:18 77 98 07/10/20 12:15 36.6 C 20 07/10/20 12:13 61 99 07/10/20 12:10 69 111/55 L 07/10/20 08:08 37.2 C 20 Transfer of Care Handoff Completed per policy Notes Mental Status: alert / awake / arousable Patient Amnestic to Procedure: Yes Nausea / Vomiting: adequately controlled Pain: adequately controlled Airway Patency, RR, SpO2: stable & adequate BP & HR: stable & adequate Hydration State: stable & adequate Neuraxial Anesthesia: was administered and sensory block is resolving Anesthetic Complications: no major complications apparent
[2020-07-10] MEDS: SIMETHICONE 80 MG CHEW PO SCH ×3 (16:05→21:20)
--- NOTE | 2020-07-10 16:23 | Operative Report (OR) ---
DATE OF OPERATION: 07/10/2020 PREOPERATIVE DIAGNOSES: Term elective repeat section and voluntary sterilization procedure. POSTOPERATIVE DIAGNOSES: Term elective repeat section and voluntary sterilization procedure. PROCEDURE: Repeat segment, low segment transverse and bilateral tubal ligation with Filshie clips. SURGEON: Boubacar Enriquez MD. REGIONAL MANAGER: Analilia TOPETE and YOSELYN Denton. ANESTHESIA: Spinal. CLINICAL HISTORY: The patient is a 24-year-old female, para 2-0-0-2, admitted at 39 weeks for an elective repeat section and voluntary sterilization by myself. The patient was given informed consent in the office by Dr. Waters. Consents were signed and a timeout was called prior to the start of the procedure. DESCRIPTION OF PROCEDURE: Under satisfactory spinal anesthesia, the patient was prepped and draped in the usual sterile fashion. A low Pfannenstiel incision through a prior scar was then made entering into the abdominal cavity through successive layers of the skin into the peritoneal cavity. Upon entering into the peritoneal cavity, pickups with teeth and Metzenbaums were then used to create a bladder flap. Bladder blade was entered. A low segment transverse incision over the lower uterine segment was made. The incision was nicked. Amniotic fluid was noted to be clear. The incision was widened in the AP diameter and then the infant was then delivered from the vertex presentation with the aid of fundal pressure delivering a live male. Apgars were 8 and 9. There was delayed cord clamping for 1 minute. The baby was handed to the event lighting specialist. weight was 9 pounds 1 ounce. Cord blood was obtained. Placenta then delivered spontaneously and intact and submitted to pathology as a separate specimen. Uterus was then exteriorized. Ring forceps were then placed on both angles in the inferior margin. Uterus was closed in double layer closure starting with 0 Vicryl suture in a continuous interlocking fashion followed by a second imbricating layer. No active bleeding was noted. The initial sponge, needle, and instrument count were found to be correct. The tubes, ovaries bilaterally were found to be within normal limits. Both Filshie clips were both tubes were identified. Filshie clips were then applied to both tubes 2 on each side without difficulty. The contents of the pelvic cavity were then irrigated to clear. The initial sponge and instrument count were found to be correct. Uterus was placed back into the normal anatomical position. The lower uterine incision was inspected and no active bleeding was noted. The fascia was then reapproximated from both ends using 0 Vicryl suture in a continuous fashion. Subcuticular space was irrigated. Bleeders were cauterized. Subcuticular layer was then closed with a 2-0 plain suture and the skin was then reapproximated with 4-0 Monocryl suture. Steri-Strips and Telfa were then applied and a dressing. The initial sponge, needle, and instrument count were found to be correct. The EBL was 600 mL Total urine output 400 mL and the total fluids were 2000 mL. After the patient was placed supine on a stretcher, she was taken to the recovery room in labor and delivery in stable condition. Please note that the assistants at surgery were needed for retraction and pushing baby out for safe delivery and surgery. I attest to the content of the Intraoperative Record and any orders documented therein. Any exceptions are noted below. MONTSERRAT
[2020-07-10] MEDS: DOCUSATE SODIUM 100 MG CAP PO SCH (21:21)
[2020-07-11] MEDS ORDERED: CITRIC ACID/SODIUM CITRATE 15 ML UDC PO SCH (06:00)
[2020-07-11] MEDS ORDERED: ceFAZolin 2000MG 2,000 MG/15 ML SYR IV SCH (06:00)
[2020-07-11] MEDS ORDERED: PROMETHAZINE HCL 25 MG in SODIUM CHLORIDE 0.9% 50 ML IV PRN (06:11)
[2020-07-11] MEDS ORDERED: ONDANSETRON INJ 2 MG/ML 2 ML VIAL IV PRN (06:11)
[2020-07-11] MEDS ORDERED: KETOROLAC 30 MG/ML VIAL IV PRN (06:11)
[2020-07-11] MEDS ORDERED: diphenhydrAMINE Capsule 25 MG CAP PO PRN (06:11)
[2020-07-11] MEDS ORDERED: diphenhydrAMINE 50 MG/ML VIAL IV PRN (06:11)
[2020-07-11 06:19] LABS: Mean Corpuscular Hgb Conc 33.4 g/dL (32-36)
[2020-07-11 06:44] LABS: Hematocrit (blood only) 33.2 % (37-47); Hemoglobin 11.1 g/dL (12.0-16.0); Mean Corpuscular Hemoglobin 28.3 pg (25-34); Mean Corpuscular Volume 84.7 fL (80-100); RDW Coefficient of Variation 12.8 % (11.5-14.5); RDW Standard Deviation 39.3 fL (36.4-46.3); Red Blood Count 3.92 M/uL (4.2-5.4); White Blood Count 12.58 K/uL (4.8-10.8)
[2020-07-11 06:50] LABS: Mean Platelet Volume 13.1 fL (7.4-10.4); Platelet Count 137 K/uL (130-400)
[2020-07-11 06:51] LABS: Basophils # (auto) 0.02 K/uL (0-0.2); Basophils % (auto) 0.2 %; Eosinophils # (auto) 0.08 K/uL (0-0.5); Eosinophils % (auto) 0.6 %; Immature Granulocytes # (auto) 0.05 K/uL (0.00-0.02); Immature Granulocytes % (auto) 0.4 %; Lymphocytes # (auto) 2.46 K/uL (1.2-3.4); Lymphocytes % (auto) 19.6 %; Monocytes # (auto) 1.47 K/uL (0.11-0.59); Monocytes % (auto) 11.7 %; Neutrophils % (auto) 67.5 %; Platelet Estimate Decreased (Normal)
[2020-07-11] MEDS: SIMETHICONE 80 MG CHEW PO SCH ×4 (07:49→20:01)
[2020-07-11] MEDS: DOCUSATE SODIUM 100 MG CAP PO SCH ×2 (07:50→20:01)
[2020-07-11] MEDS: PRENATAL VITAMIN 1 TAB PO SCH (07:50)
[2020-07-11] MEDS: IBUPROFEN 600 MG TAB PO PRN ×3 (07:50→20:00)
[2020-07-11] MEDS: oxyCODONE/ACETAMINOPHEN 5mg/325mg TAB PO PRN ×3 (07:50→20:01)
[2020-07-11] MEDS: FERROUS SULFATE 325 MG TAB PO SCH (07:50)
--- NOTE | 2020-07-11 08:35 | Obstetrical Progress Note ---
Date of Service July 11, 2020 Assessment & Plan Admission and Anticipated Discharge Date Admission Date: July 10, 2020 Subjective Patient is seen and examined. She feels well, no complaints. Pain is under control with oral meds. Ambulating without dizziness. Voiding without difficulty Tolerating regular diet with out N&V Flatus + BM neg Bleeding is minimal No fever/ chills/ CP/ SOB/ N&V/ Leg pain Breast feeding without problems Vital Signs Temp Pulse Resp BP Pulse Ox 07/11/20 07:46 37 C 57 L 18 108/67 96 07/11/20 06:05 16 96 07/11/20 05:10 16 95 07/11/20 04:00 36.7 C 61 18 111/70 96 07/11/20 03:50 18 96 07/11/20 02:15 16 100 07/11/20 01:05 16 99 07/11/20 00:30 36.9 C 58 L 16 115/72 99 07/10/20 23:05 18 100 07/10/20 22:15 16 99 07/10/20 21:20 18 99 Lab Results 07/10/20 07/10/20 07/11/20 Range/Units 07:35 07:35 05:51 WBC 10.98 H 12.58 H (4.8-10.8) K/uL RBC 4.19 L 3.92 L (4.2-5.4) M/uL Hgb 11.7 L 11.1 L (12.0-16.0) g/dL Hct 35.0 L 33.2 L (37-47) % MCV 83.5 84.7 (80-100) fL MCH 27.9 28.3 (25-34) pg MCHC 33.4 33.4 (32-36) g/dL RDW Std Deviation 38.5 39.3 (36.4-46.3) fL RDW Coeff of Theo 12.7 12.8 (11.5-14.5) % Plt Count 149 137 (130-400) K/uL MPV 12.9 H 13.1 H (7.4-10.4) fL Immature Gran % (Auto) 0.8 0.4 % Neut % (Auto) 67.9 67.5 % Lymph % (Auto) 21.8 19.6 % [place] % (Auto) 8.7 11.7 % Eos % (Auto) 0.6 0.6 % Baso % (Auto) 0.2 0.2 % Neut # (Auto) 7.45 H 8.50 H (1.4-6.5) K/uL Lymph # (Auto) 2.39 2.46 (1.2-3.4) K/uL [place] # (Auto) 0.96 H 1.47 H (0.11-0.59) K/uL Eos # (Auto) 0.07 0.08 (0-0.5) K/uL Baso # (Auto) 0.02 0.02 (0-0.2) K/uL Immature Gran # (Auto) 0.09 H 0.05 H (0.00-0.02) K/uL Platelet Estimate Decreased L (Normal) Blood Type O Positive Antibody Screen NEGATIVE PE: General: Alert, orientedx3, NAD CVS: S1S2 RRR Lungs; CTAB Abd: soft, NT, ND, BS+, fundus firm, below Umbilicus Incision/ Dressing : Clean, dry, intact Perineum intact, Lochia rubra minimal Ext; NT, no edema AP: 24 yo s/p C Section, pod# 1 VSS Afebrile doing well Continue routine postop care Encourage ambulation, PO intake All questions were answered D/C home tomorrow Results & Data ([facility]) Vital Signs (Past 12 Hours) Vital Signs Temp Pulse Resp BP Pulse Ox 07/11/20 07:46 37 C 57 L 18 108/67 96 07/11/20 06:05 16 96 07/11/20 05:10 16 95 07/11/20 04:00 36.7 C 61 18 111/70 96 07/11/20 03:50 18 96 07/11/20 02:15 16 100 07/11/20 01:05 16 99 07/11/20 00:30 36.9 C 58 L 16 115/72 99 07/10/20 23:05 18 100 07/10/20 22:15 16 99 07/10/20 21:20 18 99
[2020-07-11] MEDS ORDERED: [UNRECOGNIZED DRUG - REMARK] PO SCH (09:00)
[2020-07-11] MEDS ORDERED: NON-FORMULARY MEDICATION (Prenat.Vits,Cal,Min-Iron-Folic Tablet) PO SCH (09:00)
[2020-07-11] MEDS ORDERED: bisacodyL 5 MG TABEC PO SCH (20:00)
[2020-07-12] MEDS: oxyCODONE/ACETAMINOPHEN 5mg/325mg TAB PO PRN ×2 (02:35→07:56)
[2020-07-12] MEDS: IBUPROFEN 600 MG TAB PO PRN ×2 (02:35→07:56)
[2020-07-12 06:40] LABS: Hematocrit (blood only) 33.9 % (37-47); Hemoglobin 11.1 g/dL (12.0-16.0)
[2020-07-12] MEDS: SIMETHICONE 80 MG CHEW PO SCH (07:55)
[2020-07-12] MEDS: DOCUSATE SODIUM 100 MG CAP PO SCH (07:55)
[2020-07-12] MEDS: PRENATAL VITAMIN 1 TAB PO SCH (07:55)
[2020-07-12] MEDS: FERROUS SULFATE 325 MG TAB PO SCH (07:55)
--- NOTE | 2020-07-12 10:01 | Surgery Progress Note ---
Date of Service July 12, 2020 Assessment & Plan Admission and Anticipated Discharge Date Admission Date: July 10, 2020 Subjective POD#2 doing well tolerating diet passing gas out of bed no pain or bleeding Physical Exam Constitutional: WD/WN, vitals as above comfortable abdomen soft and non- tender fundus firm incision c/d/i no edema neg Gordon's Results & Data ([facility]) Vital Signs (Past 12 Hours) Vital Signs Temp Pulse Pulse Resp BP Pulse Ox 07/12/20 07:20 36.7 C 61 18 127/74 98 07/11/20 23:25 36.7 C 83 18 112/74 Laboratory Results 07/10/20 07/10/20 07/11/20 07:35 07:35 05:51 WBC 10.98 H 12.58 H RBC 4.19 L 3.92 L Hgb 11.7 L 11.1 L Hct 35.0 L 33.2 L MCV 83.5 84.7 MCH 27.9 28.3 MCHC 33.4 33.4 RDW Std Deviation 38.5 39.3 RDW Coeff of Theo 12.7 12.8 Plt Count 149 137 MPV 12.9 H 13.1 H Immature Gran % (Auto) 0.8 0.4 Neut % (Auto) 67.9 67.5 Lymph % (Auto) 21.8 19.6 [place] % (Auto) 8.7 11.7 Eos % (Auto) 0.6 0.6 Baso % (Auto) 0.2 0.2 Neut # (Auto) 7.45 H 8.50 H Lymph # (Auto) 2.39 2.46 [place] # (Auto) 0.96 H 1.47 H Eos # (Auto) 0.07 0.08 Baso # (Auto) 0.02 0.02 Immature Gran # (Auto) 0.09 H 0.05 H Platelet Estimate Decreased L Blood Type O Positive Antibody Screen NEGATIVE 07/12/20 06:01 WBC RBC Hgb 11.1 L Hct 33.9 L MCV MCH MCHC RDW Std Deviation RDW Coeff of Theo Plt Count MPV Immature Gran % (Auto) Neut % (Auto) Lymph % (Auto) [place] % (Auto) Eos % (Auto) Baso % (Auto) Neut # (Auto) Lymph # (Auto) [place] # (Auto) Eos # (Auto) Baso # (Auto) Immature Gran # (Auto) Platelet Estimate Blood Type Antibody Screen for discharge today
[2020-07-12] MEDS ORDERED: bisacodyL 10 MG SUPP PR PRN (12:10)
--- NOTE | 2020-07-16 11:58 | Discharge Summary (DS) ---
REASON FOR ADMISSION AND HOSPITAL COURSE: The patient is a 24-year-old female, para 2-0-0-2, admitted at 39 weeks for elective repeat section and voluntary sterilization. The patient delivered a live male. Apgars were 8 and 9, weight was 9 pounds 1 ounce. Hospital course was uncomplicated. The patient was discharged home in stable condition. Discharge instructions were reviewed with the patient. Hospital course as noted. Regular diet on discharge. CONDITION ON DISCHARGE: Stable. MEDICATIONS: Include Percocet and Motrin. Followup will be in the office in 1 week for an incision check.
== END 2020-07-12 13:15 | disposition home or self-care (01) | DRG 785 ==
LOC: 4S1 07:25 → EDSTATUS 09:00 → 4S2 15:00
PROC: M.PPTLD (2020-07-10 09:00)